=== PATIENT | female | born 1950 | race Hispanic/Latino ===

== ENCOUNTER 2017-02-21 20:02 | Emergency (ER) | payer OTHER ==
[2017-02-21 20:17] VITALS: PULSE 78; RESP 20; TEMP 96.2; O2SAT 100
[2017-02-21] MEDS ORDERED: TDAP Vaccine 0.5 mL Syr IM ONE (20:42)
--- NOTE | 2017-02-21 20:47 | ED PDOC ---
HPI: Skin/Bite Injury Time Seen by Provider: 02/21/17 20:15 Chief Complaint (Nursing): Abnormal Skin Integrity Chief Complaint (Provider): abnormal skin integrity History Per: Patient History/Exam Limitations: no limitations Onset/Duration Of Symptoms: Hrs (x 3) Current Symptoms Are (Timing): Still Present Additional Complaint(s): Tanya Buchanan is a 66 year old female, with a previous medical history of hypertension, who presents to the ED for the evaluation of scratches she sustained on her left hand approximately 3 hours prior to arrival. 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 Pt reports to trying to stop the bleeding of her patient's arm when her patient began to scratch her hand. Pt denies any blood contact from her patient. Pt states tetanus is not up to date. Pt denies any additional complaints at this time. PMD: Williams Bloom MD Past Medical History Reviewed: Historical Data, Nursing Documentation, Vital Signs Vital Signs: Last Vital Signs Temp 96.2 F L 02/21/17 20:14 Pulse 78 02/21/17 20:14 Resp 20 02/21/17 20:14 BP 151/92 H 02/21/17 20:14 Pulse Ox 100 02/21/17 20:14 - Medical History PMH: Anxiety, Diverticulitis, HTN - Family History Family History: States: Unknown Family Hx - Home Medications Home Medications: Ambulatory Orders Medication Instructions Recorded Cyclobenzaprine [Cyclobenzaprine 10 mg PO Q8 PRN #30 tab 07/07/16 HCl] Acetaminophen [Tylenol 325mg tab] 325 mg PO Q6 #30 tab 08/03/16 - Allergies Allergies/Adverse Reactions: Allergies Allergy/AdvReac Type Severity Reaction Status Date / Time No Known Allergies Allergy Verified 12/01/16 08:22 Review of Systems ROS Statement: Except As Marked, All Systems Reviewed And Found Negative Skin: Positive for: Other (scratches) Physical Exam - Reviewed Nursing Documentation Reviewed: Yes Vital Signs Reviewed: Yes - Physical Exam Appears: Positive for: Well, Non-toxic, No Acute Distress Head Exam: Positive for: ATRAUMATIC, NORMAL INSPECTION, NORMOCEPHALIC Skin: Positive for: Normal Color, Warm, Dry Extremity: Positive for: Normal ROM, Capillary Refill (< 2 seconds), Other ( abrasions noted to the left wrist. superficial. No active bleeding. ). Negative for: Tenderness, Deformity, Swelling - ECG O2 Sat by Pulse Oximetry: 100 (RA) Pulse Ox Interpretation: Normal Medical Decision Making Medical Decision Making: Initial Impression: Abrasion Initial Plan: * boostrix vaccine * disposition Scribe Attestation: Documented by Fay Marcus, acting as a scribe for Ana Rendon PA-C. Provider Scribe Attestation: All medical record entries made by the Scribe were at my direction and personally dictated by me. I have reviewed the chart and agree that the record accurately reflects my personal performance of the history, physical exam, medical decision making, and the department course for this patient. I have also personally directed, reviewed, and agree with the discharge instructions and disposition
[2017-02-21 21:55] VITALS: BP 150/79
== END 2017-02-21 21:33 | disposition home or self-care (01) ==
LOC: H.ER 20:02
DX: T14.8 Other injury of unspecified body region (principal); W50.4XXA Accidental scratch by another person, initial encounter; Y99.0 Civilian activity done for income or pay

== ENCOUNTER 2018-09-08 10:01 | Inpatient (IN) | payer MEDICARE ==
[2018-09-12 09:17] VITALS: BMI 31.6
[2018-09-13] MEDS ORDERED: Magnesium Hydroxide Susp 30 ml UD PO PRN (14:40)
[2018-09-13] MEDS ORDERED: oxyCODONE 5 mg Immediate Release Tab PO PRN ×2 (14:41→14:44)
[2018-09-14 06:24] LABS: BASO # 0.1 K/uL (0.0-0.2); BASO % 0.9 % (0.0-2.0); EOS # 0.4 K/uL (0.0-0.7); EOS % 3.9 % (0.0-4.0); LYMPH # 1.7 K/uL (1.0-4.3); LYMPH % 17.5 % (20.0-40.0); MEAN CELL VOLUME 92.4 fl (81.0-99.0); MEAN CORPUSCULAR HEMOGLOBIN 31.4 pg (27.0-31.0); MEAN PLATELET VOLUME 8.1 fl (7.2-11.7); MONO # 0.6 K/uL (0.0-0.8); MONO % 6.5 % (0.0-10.0); NEUT % 71.2 % (50.0-75.0); RBC 3.18 Mil/uL (3.80-5.20); RED CELL DISTRIBUTION WIDTH 12.7 % (11.5-14.5); WHITE BLOOD COUNT 9.9 K/uL (4.8-10.8)
[2018-09-14 06:30] LABS: BLOOD UREA NITROGEN 10 mg/dl (7-17); CALCIUM 9.1 mg/dL (8.4-10.2); GFR NON-AFRICAN AMERICAN > 60
[2018-09-14] MEDS: Enoxaparin 40 mg Syringe SC SCH (08:24)
--- NOTE | 2018-09-14 11:29 | CP.PCM.CON ---
History of Present Illness - History of Present Illness History of Present Illness: Dr Raines PMR consultation on Nori Buchanan, born 1950, who has been admitted to [facility] for acute inpatient rehabilitation and pain management following lumbar surgery by Dr Frias with L4/5 decompression and fusion Review of Systems - Constitutional Constitutional: absent: Anorexia, Chills - EENT Eyes: absent: Change in Vision Ears: absent: Ear Discharge, Ear Pain Nose/Mouth/Throat: absent: Nasal Congestion - Cardiovascular Cardiovascular: absent: Chest Pain - Respiratory Respiratory: absent: Dyspnea, Hemoptysis - Gastrointestinal Gastrointestinal: Constipation (which has resolved with medication) - Genitourinary Genitourinary: Other (urinary retention now with rodríguez) Past Patient History - Infectious Disease Hx of Infectious Diseases: None - Past Social History Smoking Status: Never Smoked Alcohol: None Drugs: Denies Home Situation {Lives}: Alone (15 steps) - CARDIAC Hx Hypertension: Yes - HEMATOLOGICAL/ONCOLOGICAL Hx AIDS: No Hx Human Immunodeficiency Virus (HIV): No - MUSCULOSKELETAL/RHEUMATOLOGICAL Hx Falls: No - GASTROINTESTINAL Hx Diverticulitis: Yes - PSYCHIATRIC Hx Substance Use: No - SURGICAL HISTORY Hx Surgeries: No - ANESTHESIA Hx Anesthesia: No Meds Allergies/Adverse Reactions: Allergies Allergy/AdvReac Type Severity Reaction Status Date / Time oxycodone [From OxyContin] AdvReac Intermediate VISUAL Verified 09/14/18 08:35 HALLUCINATION AND PARANOIA - Medications Medications: Current Medications Acetaminophen (Tylenol 325mg Tab) 650 mg PO Q6 PRN PRN Reason: Pain, Mild (1-3) Last Admin: 09/14/18 10:22 Dose: 650 mg Alprazolam (Xanax) 0.5 mg PO TID PRN PRN Reason: Anxiety Bisacodyl (Dulcolax) 10 mg [place] DAILY PRN PRN Reason: Constipation Cyclobenzaprine HCl (Flexeril) 10 mg PO BID [facility] Docusate Sodium (Colace) 100 mg PO TID [facility] Last Admin: 09/14/18 08:26 Dose: 100 mg Enoxaparin Sodium (Lovenox) 40 mg SC DAILY [facility]; Protocol Last Admin: 09/14/18 08:24 Dose: 40 mg Famotidine (Pepcid) 20 mg PO BID [facility] Last Admin: 09/14/18 08:25 Dose: 20 mg Gabapentin (Neurontin) 300 mg PO Q12 [facility] Last Admin: 09/14/18 08:25 Dose: 300 mg Lidocaine (Lidoderm) 1 ea TD DAILY PRN PRN Reason: Pain Losartan Potassium (Cozaar) 100 mg PO DAILY [facility] Last Admin: 09/14/18 08:25 Dose: 100 mg Magnesium Hydroxide (Milk Of Magnesia) 30 ml PO DAILY PRN PRN Reason: Constipation Ondansetron HCl (Zofran Tab) 4 mg PO Q6 PRN PRN Reason: Nausea/Vomiting Oxycodone HCl (Oxycodone Immediate Release Tab) 10 mg PO Q4 PRN PRN Reason: Pain, severe (8-10) Oxycodone HCl (Oxycodone Immediate Release Tab) 5 mg PO Q4 PRN PRN Reason: Pain, moderate (4-7) Sennosides (Senokot Tab) 17.5 mg PO HS [facility] Last Admin: 09/13/18 21:36 Dose: Not Given Physical Exam - Constitutional Appears: Well, Non-toxic, No Acute Distress - Head Exam Head Exam: ATRAUMATIC, NORMAL INSPECTION, NORMOCEPHALIC - Eye Exam Eye Exam: EOMI - ENT Exam ENT Exam: Mucous Membranes Moist - Respiratory Exam Respiratory Exam: NORMAL BREATHING PATTERN - Cardiovascular Exam Cardiovascular Exam: REGULAR RHYTHM - GI/Abdominal Exam GI & Abdominal Exam: absent: Firm - Extremities Exam Extremities exam: Positive for: full ROM. Negative for: calf tenderness - Neurological Exam Neurological exam: Alert, CN II-XII Intact, Oriented x3 - Psychiatric Exam Psychiatric exam: Normal Affect, Normal Mood - Skin Skin Exam: Warm Results - Vital Signs Recent Vital Signs: Last Vital Signs Temp 98.1 F 09/14/18 08:02 Pulse 76 09/14/18 08:02 Resp 22 09/14/18 08:02 BP 160/85 H 09/14/18 08:25 Pulse Ox 98 09/14/18 08:02 - Labs Result Diagrams: 09/14/18 05:25 09/14/18 05:25 Labs: Laboratory Results - last 24 hr 09/14/18 09/14/18 05:25 05:25 WBC 9.9 RBC 3.18 L Hgb 10.0 L Hct 29.4 L MCV 92.4 MCH 31.4 H MCHC 34.0 RDW 12.7 Plt Count 329 MPV 8.1 Neut % (Auto) 71.2 Lymph % (Auto) 17.5 L Newberry % (Auto) 6.5 Eos % (Auto) 3.9 Baso % (Auto) 0.9 Neut # (Auto) 7.0 Lymph # (Auto) 1.7 Newberry # (Auto) 0.6 Eos # (Auto) 0.4 Baso # (Auto) 0.1 Sodium 136 Potassium 3.5 L Chloride 99 Carbon Dioxide 30 Anion Gap 11 BUN 10 Creatinine 0.7 Est GFR ( Amer) > 60 Est GFR (Non-Af Amer) > 60 Random Glucose 106 H Calcium 9.1 Assessment & Plan - Assessment and Plan (Free Text) Assessment: 68 year old female s/p L4/5 fusion and decompression post op urinary retention has improved N/T in the legs but cramping in the thighs hurts on low dose of neurontin. I will increase. PT/OT to continue to help increase functional independence Team conference for d/c planning Pain: controlled but will increase Neurontin Vascular: no evidence of DVT GI: back and forth between constipation and loose stool. Patient is an excellent acute rehabilitation candidate and will have focused pain management, wound care, PT, OT and recreational therapy to help facilitate a safe and appropriate d/c plan impairment code 04.130
--- NOTE | 2018-09-14 18:30 | PCM.OPOC ---
Physiatry Overall Plan of Care - Overall Plan of Care Estimated Length of Stay in Weeks: 2 Rehab Impairment: Mobility, Gait, Balance, Coordination Etiologic Diagnosis: Other (spine surgery) - Anticipated Interventions Physical Therapy:: Yes Occupational Therapy:: Yes Speech Therapy:: No Recreational Therapy:: Yes - Therapy Goals Bed Mobility: Independent Ambulation: Independent Functional Positional Changes:: Independent - Discharge Plan Identification of Barriers to Discharge: Home Situation Discharge Destination: Home
--- NOTE | 2018-09-14 19:10 | HP ---
HISTORY OF PRESENT ILLNESS: Ms. Buchanan is a 68-year-old female who is status post lumbar laminectomy with decompression and fusion with instrumentation. She had the surgery because of spinal stenosis and severe back pains. She was operated at [facility] and then transferred to acute rehabilitation in [facility]. PAST MEDICAL HISTORY: Hypertension, diverticular disease, GERD, anxiety disorder, and thyroid nodule. FAMILY HISTORY: Noncontributory. 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 PHYSICAL EXAMINATION: GENERAL: The patient is alert and oriented, appears to be still in some distress because of low back pain following the surgery. VITAL SIGNS: Blood pressure 160/85, pulse of 76, respiratory rate 22. She is afebrile. O2 sat 98% on room air. SKIN: Shows fair turgor. HEENT: Pupils equal and reactive to light and accommodation. JVP flat. Mouth shows fair hygiene. LUNGS: Clear. BREASTS: Normal. HEART: Regular. No murmurs or gallop. ABDOMEN: Soft, nontender. No organomegaly. EXTREMITIES: Show trace pitting pedal edema. There is a scar of lumbar laminectomy over the lumbosacral spine area. The wound appears well-healed. GENITOURINARY: The patient still has a Back catheter in place because of urinary retention. CENTRAL NERVOUS SYSTEM: Appears grossly unremarkable. She is able to move all extremities. She is alert and oriented, but somewhat emotional. LABORATORY DATA: Pending. IMPRESSION AND PLAN: Status post lumbar laminectomy with fusion and L4-L5 decompression, hypertension, anxiety disorder, urinary retention, gastroesophageal reflux disease. The plan is aggressive occupational and physical therapy. Physiatry evaluation and we would obtain urology evaluation for urinary retention, history of thyroid nodule with negative 5 mL aspiration in the past. We will continue therapy as ordered. Further therapy will depend on findings. Nahid Simpson MD
--- NOTE | 2018-09-14 20:29 | CP.PCM.PN ---
Subjective - Date & Time of Evaluation Date of Evaluation: 09/14/18 Time of Evaluation: 20:28 - Subjective Subjective: UROLOGY Consult dictated. x post op urine retention. Suggest Uricholione tid then on 09/16 D/C rodríguez and give voiding trial Objective - Vital Signs/Intake and Output Vital Signs (last 24 hours): Temp Pulse Resp BP Pulse Ox 98.2 F 83 20 157/79 H 98 09/14/18 20:15 09/14/18 20:15 09/14/18 20:15 09/14/18 20:15 09/14/18 20:15 Intake and Output: 09/14/18 09/15/18 18:59 06:59 Intake Total 980 Output Total 1100 Balance -120 - Medications Medications: Current Medications Acetaminophen (Tylenol 325mg Tab) 650 mg PO Q6 PRN PRN Reason: Pain, Mild (1-3) Last Admin: 09/14/18 18:01 Dose: 650 mg Alprazolam (Xanax) 0.5 mg PO TID PRN PRN Reason: Anxiety Last Admin: 09/14/18 13:48 Dose: 0.5 mg Bisacodyl (Dulcolax) 10 mg [place] DAILY PRN PRN Reason: Constipation Cyclobenzaprine HCl (Flexeril) 10 mg PO BID [facility] Last Admin: 09/14/18 17:06 Dose: 10 mg Docusate Sodium (Colace) 100 mg PO TID [facility] Last Admin: 09/14/18 17:06 Dose: 100 mg Enoxaparin Sodium (Lovenox) 40 mg SC DAILY [facility]; Protocol Last Admin: 09/14/18 08:24 Dose: 40 mg Famotidine (Pepcid) 20 mg PO BID [facility] Last Admin: 09/14/18 17:06 Dose: 20 mg Gabapentin (Neurontin) 400 mg PO TID [facility] Lidocaine (Lidoderm) 1 ea TD DAILY PRN PRN Reason: Pain Losartan Potassium (Cozaar) 100 mg PO DAILY [facility] Last Admin: 09/14/18 08:25 Dose: 100 mg Magnesium Hydroxide (Milk Of Magnesia) 30 ml PO DAILY PRN PRN Reason: Constipation Ondansetron HCl (Zofran Tab) 4 mg PO Q6 PRN PRN Reason: Nausea/Vomiting Oxycodone HCl (Oxycodone Immediate Release Tab) 10 mg PO Q4 PRN PRN Reason: Pain, severe (8-10) Oxycodone HCl (Oxycodone Immediate Release Tab) 5 mg PO Q4 PRN PRN Reason: Pain, moderate (4-7) Sennosides (Senokot Tab) 17.5 mg PO HS [facility] Last Admin: 09/13/18 21:36 Dose: Not Given - Labs Labs: 09/14/18 05:25 09/14/18 05:25
[2018-09-14] MEDS: Bethanechol 50 MG TAB PO SCH (21:37)
--- NOTE | 2018-09-15 05:53 | CON ---
DATE: 09/14/2018 Consult was seen for urinary retention. This is a 68-year-old female patient who had been suffering of lumbar stenosis for quite some time, got to the point where she was almost unable to ambulate. At this point, she had gone for elective surinder placement for the lower back and postoperatively from where the patient did not have any urinary difficulty behind this procedure. Following the procedure, the patient had several episodes of significant urinary retention with greater than 1000 mL recovered on straight cath. Catheter has now been placed in as an indwelling Back catheter. At the same time, the urine problem was becoming evident. The patient also had severe bowel impaction, and she was manually disimpacted. As at the time of this consult, the patient is still having difficulty with normal bowel movement. She is on multiple forms of bowel softeners. So, at this point, I would probably begin bethanechol 50 mg every 8 hours in preparation for an eventual voiding trial which I suspect would happen on Friday of this week 8 o'clock in the morning. We will remove Back catheter and see if the patient is able to void. Currently, the patient is ambulatory. She is not running any fever. She is not having any unusual discomfort from the Back catheter. Shaun Saleh MD
[2018-09-15] MEDS: Enoxaparin 40 mg Syringe SC SCH (08:09)
[2018-09-15] MEDS: Bethanechol 50 MG TAB PO SCH ×3 (08:10→21:03)
--- NOTE | 2018-09-15 09:09 | CP.PCM.PN ---
Subjective - Date & Time of Evaluation Date of Evaluation: 09/15/18 Time of Evaluation: 09:10 - Subjective Subjective: NO COMPLAINTS TODAY ANXIOUS Objective - Vital Signs/Intake and Output Vital Signs (last 24 hours): Temp Pulse Resp BP Pulse Ox 98.1 F 84 22 152/74 H 97 09/15/18 08:13 09/15/18 08:13 09/15/18 08:13 09/15/18 08:13 09/15/18 08:13 Intake and Output: 09/15/18 09/15/18 06:59 18:59 Intake Total 1400 Output Total 2150 Balance -750 - Medications Medications: Current Medications Acetaminophen (Tylenol 325mg Tab) 650 mg PO Q6 PRN PRN Reason: Pain, Mild (1-3) Last Admin: 09/14/18 18:01 Dose: 650 mg Alprazolam (Xanax) 0.5 mg PO TID PRN PRN Reason: Anxiety Last Admin: 09/15/18 07:38 Dose: 0.5 mg Bethanechol Chloride (Urecholine) 50 mg PO TID@0900,1500,2100 [facility] Last Admin: 09/15/18 08:10 Dose: 50 mg Bisacodyl (Dulcolax) 10 mg [place] DAILY PRN PRN Reason: Constipation Cyclobenzaprine HCl (Flexeril) 10 mg PO BID [facility] Last Admin: 09/15/18 08:09 Dose: 10 mg Docusate Sodium (Colace) 100 mg PO TID [facility] Last Admin: 09/15/18 08:13 Dose: 100 mg Enoxaparin Sodium (Lovenox) 40 mg SC DAILY [facility]; Protocol Last Admin: 09/15/18 08:09 Dose: 40 mg Famotidine (Pepcid) 20 mg PO BID [facility] Last Admin: 09/15/18 08:10 Dose: 20 mg Gabapentin (Neurontin) 400 mg PO TID@0900,1500,2100 [facility] Last Admin: 09/15/18 08:10 Dose: 400 mg Lidocaine (Lidoderm) 1 ea TD DAILY PRN PRN Reason: Pain Losartan Potassium (Cozaar) 100 mg PO DAILY [facility] Last Admin: 09/15/18 08:09 Dose: 100 mg Magnesium Hydroxide (Milk Of Magnesia) 30 ml PO DAILY PRN PRN Reason: Constipation Ondansetron HCl (Zofran Tab) 4 mg PO Q6 PRN PRN Reason: Nausea/Vomiting Oxycodone HCl (Oxycodone Immediate Release Tab) 10 mg PO Q4 PRN PRN Reason: Pain, severe (8-10) Oxycodone HCl (Oxycodone Immediate Release Tab) 5 mg PO Q4 PRN PRN Reason: Pain, moderate (4-7) Sennosides (Senokot Tab) 17.5 mg PO HS [facility] Last Admin: 09/14/18 21:39 Dose: Not Given - Labs Labs: 09/14/18 05:25 09/14/18 05:25 - Constitutional Appears: No Acute Distress - Head Exam Head Exam: ATRAUMATIC, NORMAL INSPECTION, NORMOCEPHALIC - Eye Exam Eye Exam: EOMI, Normal appearance, PERRL Pupil Exam: NORMAL ACCOMODATION, PERRL - ENT Exam ENT Exam: Mucous Membranes Moist, Normal Exam - Neck Exam Neck Exam: Full ROM, Normal Inspection. absent: Lymphadenopathy - Respiratory Exam Respiratory Exam: Clear to Ausculation Bilateral, NORMAL BREATHING PATTERN - Cardiovascular Exam Cardiovascular Exam: REGULAR RHYTHM, +S1, +S2. absent: Murmur - GI/Abdominal Exam GI & Abdominal Exam: Soft, Normal Bowel Sounds. absent: Tenderness - Rectal Exam Rectal Exam: NORMAL INSPECTION - Extremities Exam Extremities Exam: Full ROM, Normal Capillary Refill, Normal Inspection, Tenderness. absent: Joint Swelling, Pedal Edema - Back Exam Back Exam: NORMAL INSPECTION - Neurological Exam Neurological Exam: Abnormal Gait, Alert, Awake, CN II-XII Intact, Oriented x3 - Psychiatric Exam Psychiatric exam: Anxious - Skin Skin Exam: Dry, Intact, Normal Color, Warm Assessment and Plan - Assessment and Plan (Free Text) Assessment: S/P LAMINECTOMY AND SPINAL FUSION ANXIETY URINARY RETENTION Plan: CONTINUE RX ORDERED
--- NOTE | 2018-09-15 13:16 | PSY.TMCNF ---
Nursing - Vital Signs Vital Signs (Last 8 hours): Vital Signs 09/15/18 09/15/18 09/15/18 08:09 08:13 09:00 Temperature 98.1 F 98.1 F Pulse Rate 84 84 Respiratory 22 22 Rate Blood Pressure 152/74 H 152/74 H 152/74 H O2 Sat by Pulse 97 Oximetry Pain: 0 - Skin Incision Site: Mid lower back Dressing Status: Clean, Dry, Intact Incision: No Drainage Noted Incision Line Treatment: I/L with dermabond - [place] - Wound Lower Back Wound Type: Incision Periwound: Intact Wound Drainage Amount: None Wound General Appearance: Asymptomatic, Open to air Wound Primary Dressing Type: Open to air - Bladder Management Bladder Pattern: Retention Voiding Method: Indwelling Catheter - Bowel Management Bowel Pattern: Normal - Goals/Time Frame Comments: Pt was seen awake and alert sitting in her wheelchair in her room. Pt was agreeable to visit. Pt c/o pain in quadricep area and presented with no back pain. Pt was able to identify her leisure interests such as watching television, gardening, going shopping, spending time with friends, and plays music. Pt reported that she plays the piano, guitar, and the violin. Pt stated that her back pain has limited her lifestyle and pt stated that she will watch television more and lay in bed 2' pain and discomfort. Pt agreeable to participate in sessions and educated on purpose to decrease anxiety level. Pt's mood was stable-positive although worried about therapy session. Pt seen by PT following visit. Physical Therapy - Transfers Sit to Stand: Supervision, Verbal Cues - Ambulation Level of Assistance: Supervision, Verbal Cues, Contact Guard, Minimal Assistance Distance (ft.): 140 Assistive Devices: Rolling Walker - Stair Negotiation Stairs: Level of Assistance: Verbal Cues, Contact Guard Number of Stairs: 4 Stairs: Assistive Devices: Left Handrail, Right Handrail - Standing Balance Static Stand: Supervision Dynamic Stand: Supervision, Contact Guard Assist - Pain Management Techniques: Medication, Position Change, Distraction, Inactivity - Assessment/Plan Assessment: Ms. Buchanan is a 68 year old female admitted to [facility] acute rehabilitation on 09/13/18 for comprehensive therapies s/p lumbar laminectomy. Patient requires low complexity problem solving and condition is stable. Patient has some discomfort in the BLE but over-all reports that her distal numbness and tingling from B feet has improved. Pt educated on goal of centralization of symptoms from prior to surgery. Patient is compliant and agreeable to participate in all tasks. Pt presents with impaired sensation, some LE impaired neuromotor control, impaired mobility and decreased tolerance to exercise s/p procedure. PT recommends skilled therapy 5-6x per week for 9-14 days to maximize safety and independence with all tasks. PT recommends home discharge with intermittent supervision, assistance in community and least restrictive AD to be determined. PT recommends home care progressing to outpatient as appropriate. - Provider Therapist: Becky Schmidt PT, DPT License Number: [id number] Occupational Therapy - Arousal/Attention/Orientation Patient Orientation: Person, Place, Time, Appropriate to Age, Appropriate to Situation - ADL/IADL Self Feeding: Independent, Modified Independent, Set-up Help Grooming: Supervision, Set-up Help Bathing-Upper Extremity: Supervision, Verbal Cues, Set-up Help Bathing-Lower Extremity: Verbal Cues, Set-up Help, Minimal Assistance Dressing-Upper Extremity: Set-up Help Dressing-Lower Extremity: Verbal Cues, Set-up Help, Minimal Assistance - Sitting Balance Static Sitting: Independent without upper extremity support Dynamic Sitting: Reaches out of base of support, Reaches within base of support, Requires supervision Comment: seated unsupported - Transfers Wheelchair to Bed Transfers: Supervision, Verbal Cues, Set-up Help Toilet Transfers: Set-up Help, Contact Guard Comment: with RW, verbal cues to pace and adhere to spinal precautions - Upper Extremity Status Right Upper Extremity Comment: AROM is WNLS, strength 5/5 Left Upper Extremity Comment: AROM is WNLS, strength 5/5 - Pain Alleviating Techniques: Medication, Position Change, Distraction, Inactivity - Assessment/Plan Assessment: Ms. Buchanan is a 68 year old female admitted to [facility] acute rehabilitation on 09/13/18 for comprehensive therapies s/p lumbar laminectomy. Patient requires low complexity problem solving and condition is stable. Patient has some discomfort in the BLE but over-all reports that her distal numbness and tingling from B feet has improved. Pt educated on goal of centralization of symptoms from prior to surgery. Patient is compliant and agreeable to participate in all tasks. Pt presents with impaired sensation, some LE impaired neuromotor control, impaired mobility and decreased tolerance to exercise s/p procedure. PT recommends skilled therapy 5-6x per week for 9-14 days to maximize safety and independence with all tasks. PT recommends home discharge with intermittent supervision, assistance in community and least restrictive AD to be determined. PT recommends home care progressing to outpatient as appropriate. - Provider Therapist: Hannah Chakraborty, OTR/L Speech Therapy - Plan Assessment: Ms. Buchanan is a 68 year old female admitted to [facility] acute rehabilitation on 09/13/18 for comprehensive therapies s/p lumbar laminectomy. Patient requires low complexity problem solving and condition is stable. Patient has some discomfort in the BLE but over-all reports that her distal numbness and tingling from B feet has improved. Pt educated on goal of centralization of symptoms from prior to surgery. Patient is compliant and agreeable to participate in all tasks. Pt presents with impaired sensation, some LE impaired neuromotor control, impaired mobility and decreased tolerance to exercise s/p procedure. PT recommends skilled therapy 5-6x per week for 9-14 days to maximize safety and independence with all tasks. PT recommends home discharge with intermittent supervision, assistance in community and least restrictive AD to be determined. PT recommends home care progressing to outpatient as appropriate. Recreational Therapy - Socialization Level of Socialization: Initiates/interacts freely with care givers and peer - Assessment Assessment/Plan: Ms. Buchanan is a 68 year old female admitted to [facility] acute rehabilitation on 09/13/18 for comprehensive therapies s/p lumbar laminectomy. Patient requires low complexity problem solving and condition is stable. Patient has some discomfort in the BLE but over-all reports that her distal numbness and tingling from B feet has improved. Pt educated on goal of centralization of symptoms from prior to surgery. Patient is compliant and agreeable to participate in all tasks. Pt presents with impaired sensation, some LE impaired neuromotor control, impaired mobility and decreased tolerance to exercise s/p procedure. PT recommends skilled therapy 5-6x per week for 9-14 days to maximize safety and independence with all tasks. PT recommends home discharge with intermittent supervision, assistance in community and least restrictive AD to be determined. PT recommends home care progressing to outpatient as appropriate. Problems Currently Limiting Participation: anxiety, pain, discomfort, decrease leisure awareness level - Provider Therapist: Karolyn Chávez, [employer] #[id number] Nutrition - Current Diet Current Diet/ Supplement/ Feedings: 2 gm NA+ - Appetite Percent Meal Consumed: 75-100% Case Management - Discharge Plan Discharge Plan: Home alone Rehabilitation Plan - Treatment Plan Treatment Plan: Physical Therapy, Occupational Therapy, Dietary, Pain Management, Wound Care, Patient/Family Education - Discharge Plan Estimated Date of Discharge: 09/25/18 Discharge to: Home
--- NOTE | 2018-09-15 13:42 | CP.PCM.PN ---
Subjective - Date & Time of Evaluation Date of Evaluation: 09/15/18 Time of Evaluation: 13:41 - Subjective Subjective: Patient seen in the room doing well rodríguez to be removed tomorrow pain is controlled except for the thigh pain just started higher dose neurontin continue current care Objective - Vital Signs/Intake and Output Vital Signs (last 24 hours): Temp Pulse Resp BP Pulse Ox 98.1 F 84 22 152/74 H 97 09/15/18 09:00 09/15/18 09:00 09/15/18 09:00 09/15/18 09:00 09/15/18 08:13 Intake and Output: 09/15/18 09/15/18 06:59 18:59 Intake Total 1400 Output Total 2150 Balance -750 - Medications Medications: Current Medications Acetaminophen (Tylenol 325mg Tab) 650 mg PO Q6 PRN PRN Reason: Pain, Mild (1-3) Last Admin: 09/14/18 18:01 Dose: 650 mg Alprazolam (Xanax) 0.5 mg PO TID PRN PRN Reason: Anxiety Last Admin: 09/15/18 07:38 Dose: 0.5 mg Bethanechol Chloride (Urecholine) 50 mg PO Q8 [facility] Bisacodyl (Dulcolax) 10 mg IA DAILY PRN PRN Reason: Constipation Cyclobenzaprine HCl (Flexeril) 10 mg PO BID [facility] Last Admin: 09/15/18 08:09 Dose: 10 mg Docusate Sodium (Colace) 100 mg PO TID [facility] Last Admin: 09/15/18 08:13 Dose: 100 mg Enoxaparin Sodium (Lovenox) 40 mg SC DAILY [facility]; Protocol Last Admin: 09/15/18 08:09 Dose: 40 mg Famotidine (Pepcid) 20 mg PO BID [facility] Last Admin: 09/15/18 08:10 Dose: 20 mg Gabapentin (Neurontin) 400 mg PO Q8 [facility] Lidocaine (Lidoderm) 1 ea TD DAILY PRN PRN Reason: Pain Losartan Potassium (Cozaar) 100 mg PO DAILY [facility] Last Admin: 09/15/18 08:09 Dose: 100 mg Magnesium Hydroxide (Milk Of Magnesia) 30 ml PO DAILY PRN PRN Reason: Constipation Ondansetron HCl (Zofran Tab) 4 mg PO Q6 PRN PRN Reason: Nausea/Vomiting Oxycodone HCl (Oxycodone Immediate Release Tab) 10 mg PO Q4 PRN PRN Reason: Pain, severe (8-10) Oxycodone HCl (Oxycodone Immediate Release Tab) 5 mg PO Q4 PRN PRN Reason: Pain, moderate (4-7) Sennosides (Senokot Tab) 17.5 mg PO HS [facility] Last Admin: 09/14/18 21:39 Dose: Not Given - Labs Labs: 09/14/18 05:25 09/14/18 05:25
[2018-09-16] MEDS: Bethanechol 50 MG TAB PO SCH ×4 (06:55→21:31)
[2018-09-16] MEDS: Enoxaparin 40 mg Syringe SC SCH (08:31)
--- NOTE | 2018-09-16 10:53 | CP.PCM.PN ---
Subjective - Date & Time of Evaluation Date of Evaluation: 09/16/18 Time of Evaluation: 10:53 - Subjective Subjective: FEELS BETTER GHOTRA REMOVED--PT VOIDED C/O DISCOMFORT IN GREAT TOE AND WANTS BETADINE SOLUTION APPLIED TO IT Objective - Vital Signs/Intake and Output Vital Signs (last 24 hours): Temp Pulse Resp BP Pulse Ox 98.1 F 77 22 145/80 98 09/16/18 08:23 09/16/18 08:23 09/16/18 08:23 09/16/18 08:32 09/16/18 08:23 Intake and Output: 09/16/18 09/16/18 06:59 18:59 Intake Total 480 Output Total 2950 Balance -2470 - Medications Medications: Current Medications Acetaminophen (Tylenol 325mg Tab) 650 mg PO Q6 PRN PRN Reason: Pain, Mild (1-3) Last Admin: 09/16/18 00:58 Dose: 650 mg Alprazolam (Xanax) 0.5 mg PO TID PRN PRN Reason: Anxiety Last Admin: 09/16/18 07:49 Dose: 0.5 mg Bethanechol Chloride (Urecholine) 50 mg PO Q8 [facility] Last Admin: 09/16/18 07:04 Dose: 50 mg Bisacodyl (Dulcolax) 10 mg NE DAILY PRN PRN Reason: Constipation Cyclobenzaprine HCl (Flexeril) 10 mg PO BID [facility] Last Admin: 09/16/18 08:31 Dose: 10 mg Docusate Sodium (Colace) 100 mg PO TID [facility] Last Admin: 09/16/18 08:33 Dose: Not Given Enoxaparin Sodium (Lovenox) 40 mg SC DAILY [facility]; Protocol Last Admin: 09/16/18 08:31 Dose: 40 mg Famotidine (Pepcid) 20 mg PO BID [facility] Last Admin: 09/16/18 08:32 Dose: 20 mg Gabapentin (Neurontin) 400 mg PO Q8 [facility] Last Admin: 09/16/18 06:45 Dose: 400 mg Hydrochlorothiazide (Hydrodiuril) 25 mg PO DAILY [facility] Last Admin: 09/16/18 08:31 Dose: 25 mg Lidocaine (Lidoderm) 1 ea TD DAILY PRN PRN Reason: Pain Losartan Potassium (Cozaar) 100 mg PO DAILY [facility] Last Admin: 09/16/18 08:32 Dose: 100 mg Magnesium Hydroxide (Milk Of Magnesia) 30 ml PO DAILY PRN PRN Reason: Constipation Ondansetron HCl (Zofran Tab) 4 mg PO Q6 PRN PRN Reason: Nausea/Vomiting Oxycodone HCl (Oxycodone Immediate Release Tab) 10 mg PO Q4 PRN PRN Reason: Pain, severe (8-10) Oxycodone HCl (Oxycodone Immediate Release Tab) 5 mg PO Q4 PRN PRN Reason: Pain, moderate (4-7) Sennosides (Senokot Tab) 17.5 mg PO HS [facility] Last Admin: 09/15/18 21:03 Dose: Not Given - Labs Labs: 09/14/18 05:25 09/14/18 05:25 - Constitutional Appears: No Acute Distress - Head Exam Head Exam: ATRAUMATIC, NORMAL INSPECTION, NORMOCEPHALIC - Eye Exam Eye Exam: EOMI, Normal appearance, PERRL Pupil Exam: NORMAL ACCOMODATION, PERRL - ENT Exam ENT Exam: Mucous Membranes Moist, Normal Exam - Neck Exam Neck Exam: Full ROM, Normal Inspection. absent: Lymphadenopathy - Respiratory Exam Respiratory Exam: Clear to Ausculation Bilateral, NORMAL BREATHING PATTERN - Cardiovascular Exam Cardiovascular Exam: REGULAR RHYTHM, +S1, +S2. absent: Murmur - GI/Abdominal Exam GI & Abdominal Exam: Soft, Normal Bowel Sounds. absent: Tenderness - Rectal Exam Rectal Exam: NORMAL INSPECTION - Extremities Exam Extremities Exam: Full ROM, Normal Capillary Refill, Normal Inspection. absent: Joint Swelling, Pedal Edema - Back Exam Back Exam: NORMAL INSPECTION - Neurological Exam Neurological Exam: Abnormal Gait, Alert, Awake, CN II-XII Intact, Oriented x3 - Psychiatric Exam Psychiatric exam: Normal Affect, Normal Mood - Skin Skin Exam: Dry, Intact, Normal Color, Warm Assessment and Plan - Assessment and Plan (Free Text) Assessment: S/P SPINE SURGERY URINARY RETENTION--IMPROVED Plan: CONTINUE CURRENT RX
--- NOTE | 2018-09-16 12:55 | CP.PCM.PN ---
Subjective - Date & Time of Evaluation Date of Evaluation: 09/16/18 Time of Evaluation: 09:30 - Subjective Subjective: no acute complaints at present Objective - Vital Signs/Intake and Output Vital Signs (last 24 hours): Temp Pulse Resp BP Pulse Ox 98.1 F 77 22 145/80 98 09/16/18 08:23 09/16/18 08:23 09/16/18 08:23 09/16/18 08:32 09/16/18 08:23 Intake and Output: 09/16/18 09/16/18 06:59 18:59 Intake Total 480 Output Total 2950 Balance -2470 - Medications Medications: Current Medications Acetaminophen (Tylenol 325mg Tab) 650 mg PO Q6 PRN PRN Reason: Pain, Mild (1-3) Last Admin: 09/16/18 00:58 Dose: 650 mg Alprazolam (Xanax) 0.5 mg PO TID PRN PRN Reason: Anxiety Last Admin: 09/16/18 07:49 Dose: 0.5 mg Bethanechol Chloride (Urecholine) 50 mg PO Q8 [facility] Last Admin: 09/16/18 07:04 Dose: 50 mg Bisacodyl (Dulcolax) 10 mg ID DAILY PRN PRN Reason: Constipation Cyclobenzaprine HCl (Flexeril) 10 mg PO BID [facility] Last Admin: 09/16/18 08:31 Dose: 10 mg Docusate Sodium (Colace) 100 mg PO TID [facility] Last Admin: 09/16/18 08:33 Dose: Not Given Enoxaparin Sodium (Lovenox) 40 mg SC DAILY [facility]; Protocol Last Admin: 09/16/18 08:31 Dose: 40 mg Famotidine (Pepcid) 20 mg PO BID [facility] Last Admin: 09/16/18 08:32 Dose: 20 mg Gabapentin (Neurontin) 400 mg PO Q8 [facility] Last Admin: 09/16/18 06:45 Dose: 400 mg Hydrochlorothiazide (Hydrodiuril) 25 mg PO DAILY [facility] Last Admin: 09/16/18 08:31 Dose: 25 mg Lidocaine (Lidoderm) 1 ea TD DAILY PRN PRN Reason: Pain Losartan Potassium (Cozaar) 100 mg PO DAILY [facility] Last Admin: 09/16/18 08:32 Dose: 100 mg Magnesium Hydroxide (Milk Of Magnesia) 30 ml PO DAILY PRN PRN Reason: Constipation Ondansetron HCl (Zofran Tab) 4 mg PO Q6 PRN PRN Reason: Nausea/Vomiting Povidone Iodine (Betadine 10% Topical Soln) 1 ml TOP BID [facility] Sennosides (Senokot Tab) 17.2 mg PO HS [facility] - Labs Labs: 09/14/18 05:25 09/14/18 05:25 - Head Exam Head Exam: ATRAUMATIC, NORMAL INSPECTION, NORMOCEPHALIC - Eye Exam Eye Exam: EOMI, Normal appearance, PERRL Pupil Exam: NORMAL ACCOMODATION - Neck Exam Neck Exam: Full ROM, Normal Inspection - Respiratory Exam Respiratory Exam: Clear to Ausculation Bilateral, NORMAL BREATHING PATTERN - Cardiovascular Exam Cardiovascular Exam: REGULAR RHYTHM - GI/Abdominal Exam GI & Abdominal Exam: Normal Bowel Sounds - Rectal Exam Rectal Exam: NORMAL INSPECTION - Exam External exam: NORMAL EXTERNAL EXAM - Extremities Exam Extremities Exam: Full ROM, Normal Capillary Refill - Back Exam Back Exam: NORMAL INSPECTION - Neurological Exam Neurological Exam: Alert, Awake - Psychiatric Exam Psychiatric exam: Normal Affect, Normal Mood - Skin Skin Exam: Dry, Intact Assessment and Plan (1) Knee injury Status: Acute (2) Nasal contusion Status: Acute (3) Tetanus toxoid vaccination administered at current visit Status: Acute - Assessment and Plan (Free Text) Assessment: lumbar stenosis pt, ot rec therapy covering for Dr haider
[2018-09-16] MEDS: Povidone Iodine Topical 10% Sol TOP SCH (21:30)
[2018-09-17] MEDS: Bethanechol 50 MG TAB PO SCH (06:32)
[2018-09-17 06:35] LABS: HEMOGLOBIN 11.6 g/dL (12.0-16.0); MEAN CELL VOLUME 91.3 fl (81.0-99.0); MEAN CORPUSCULAR HEMOGLOBIN 31.8 pg (27.0-31.0); MEAN CORPUSCULAR HGB CONC 34.8 g/dL (33.0-37.0); RBC 3.65 Mil/uL (3.80-5.20); RED CELL DISTRIBUTION WIDTH 12.8 % (11.5-14.5); WHITE BLOOD COUNT 10.3 K/uL (4.8-10.8)
[2018-09-17 06:39] LABS: CALCIUM 9.5 mg/dL (8.4-10.2); GFR NON-AFRICAN AMERICAN > 60; HDL CHOLESTEROL 42 MG/DL (30-70)
[2018-09-17 06:49] LABS: LDL CHOLESTEROL 141 mg/dL (0-129)
[2018-09-17 06:54] LABS: BLOOD UREA NITROGEN 11 mg/dl (7-17)
[2018-09-17] MEDS: Povidone Iodine Topical 10% Sol TOP SCH ×2 (09:00→17:42)
[2018-09-17] MEDS: Enoxaparin 40 mg Syringe SC SCH (09:01)
--- NOTE | 2018-09-17 11:00 | CP.PCM.PN ---
Subjective - Date & Time of Evaluation Date of Evaluation: 09/17/18 Time of Evaluation: 11:00 - Subjective Subjective: CLINICALLY IMPROVING BACK PAIN LESS PT PROGRESSING WELL Objective - Vital Signs/Intake and Output Vital Signs (last 24 hours): Temp Pulse Resp BP Pulse Ox 98.2 F 81 20 152/79 H 96 09/17/18 08:37 09/17/18 09:01 09/17/18 08:37 09/17/18 09:01 09/17/18 08:37 Intake and Output: 09/17/18 09/17/18 06:59 18:59 Intake Total 800 Balance 800 - Medications Medications: Current Medications Acetaminophen (Tylenol 325mg Tab) 650 mg PO Q6 PRN PRN Reason: Pain, Mild (1-3) Last Admin: 09/17/18 07:03 Dose: 650 mg Alprazolam (Xanax) 0.5 mg PO TID PRN PRN Reason: Anxiety Last Admin: 09/17/18 07:03 Dose: 0.5 mg Bisacodyl (Dulcolax) 10 mg IN DAILY PRN PRN Reason: Constipation Cyclobenzaprine HCl (Flexeril) 10 mg PO BID [facility] Last Admin: 09/17/18 09:02 Dose: 10 mg Docusate Sodium (Colace) 100 mg PO TID [facility] Last Admin: 09/17/18 08:59 Dose: Not Given Enoxaparin Sodium (Lovenox) 40 mg SC DAILY [facility]; Protocol Last Admin: 09/17/18 09:01 Dose: 40 mg Famotidine (Pepcid) 20 mg PO BID [facility] Last Admin: 09/17/18 09:02 Dose: 20 mg Gabapentin (Neurontin) 400 mg PO Q8 [facility] Last Admin: 09/17/18 06:32 Dose: 400 mg Hydrochlorothiazide (Hydrodiuril) 25 mg PO DAILY [facility] Last Admin: 09/17/18 09:02 Dose: 25 mg Lidocaine (Lidoderm) 1 ea TD DAILY PRN PRN Reason: Pain Losartan Potassium (Cozaar) 100 mg PO DAILY [facility] Last Admin: 09/17/18 09:01 Dose: 100 mg Magnesium Hydroxide (Milk Of Magnesia) 30 ml PO DAILY PRN PRN Reason: Constipation Ondansetron HCl (Zofran Tab) 4 mg PO Q6 PRN PRN Reason: Nausea/Vomiting Povidone Iodine (Betadine 10% Topical Soln) 1 ml TOP BID [facility] Last Admin: 09/17/18 09:00 Dose: 1 ml Sennosides (Senokot Tab) 17.2 mg PO HS [facility] Last Admin: 09/16/18 21:31 Dose: Not Given - Labs Labs: 09/17/18 05:20 09/17/18 05:20 - Constitutional Appears: No Acute Distress - Head Exam Head Exam: ATRAUMATIC, NORMAL INSPECTION, NORMOCEPHALIC - Eye Exam Eye Exam: EOMI, Normal appearance, PERRL Pupil Exam: NORMAL ACCOMODATION, PERRL - ENT Exam ENT Exam: Mucous Membranes Moist, Normal Exam - Neck Exam Neck Exam: Full ROM, Normal Inspection. absent: Lymphadenopathy - Respiratory Exam Respiratory Exam: Clear to Ausculation Bilateral, NORMAL BREATHING PATTERN - Cardiovascular Exam Cardiovascular Exam: REGULAR RHYTHM, +S1, +S2. absent: Murmur - GI/Abdominal Exam GI & Abdominal Exam: Soft, Normal Bowel Sounds. absent: Tenderness - Rectal Exam Rectal Exam: NORMAL INSPECTION - Extremities Exam Extremities Exam: Full ROM, Normal Capillary Refill, Normal Inspection. absent: Joint Swelling, Pedal Edema - Back Exam Back Exam: NORMAL INSPECTION - Neurological Exam Neurological Exam: Alert, Awake, CN II-XII Intact, Normal Gait, Oriented x3 - Psychiatric Exam Psychiatric exam: Normal Affect, Normal Mood - Skin Skin Exam: Dry, Intact, Normal Color, Warm Assessment and Plan - Assessment and Plan (Free Text) Assessment: S/P SPINE SURGERY WITH FUSION HTN-STABLE ANEMIA-IMPROVED HYPERLIPIDEMIA ANXIETY Plan: CONTINUE CURRENT THERAPY
--- NOTE | 2018-09-17 20:25 | CP.PCM.PN ---
Subjective - Date & Time of Evaluation Date of Evaluation: 09/17/18 Time of Evaluation: 11:00 - Subjective Subjective: no acute complaints of pain Objective - Vital Signs/Intake and Output Vital Signs (last 24 hours): Temp Pulse Resp BP Pulse Ox 98.2 F 81 20 152/79 H 96 09/17/18 08:37 09/17/18 09:01 09/17/18 08:37 09/17/18 09:01 09/17/18 08:37 - Medications Medications: Current Medications Acetaminophen (Tylenol 325mg Tab) 650 mg PO Q6 PRN PRN Reason: Pain, Mild (1-3) Last Admin: 09/17/18 07:03 Dose: 650 mg Alprazolam (Xanax) 0.5 mg PO TID PRN PRN Reason: Anxiety Last Admin: 09/17/18 20:14 Dose: 0.5 mg Bisacodyl (Dulcolax) 10 mg NC DAILY PRN PRN Reason: Constipation Cyclobenzaprine HCl (Flexeril) 10 mg PO BID [facility] Last Admin: 09/17/18 17:43 Dose: 10 mg Docusate Sodium (Colace) 100 mg PO TID [facility] Last Admin: 09/17/18 17:43 Dose: 100 mg Enoxaparin Sodium (Lovenox) 40 mg SC DAILY [facility]; Protocol Last Admin: 09/17/18 09:01 Dose: 40 mg Famotidine (Pepcid) 20 mg PO BID [facility] Last Admin: 09/17/18 17:44 Dose: 20 mg Gabapentin (Neurontin) 400 mg PO Q8 [facility] Last Admin: 09/17/18 13:06 Dose: 400 mg Hydrochlorothiazide (Hydrodiuril) 25 mg PO DAILY [facility] Last Admin: 09/17/18 09:02 Dose: 25 mg Lidocaine (Lidoderm) 1 ea TD DAILY PRN PRN Reason: Pain Losartan Potassium (Cozaar) 100 mg PO DAILY [facility] Last Admin: 09/17/18 09:01 Dose: 100 mg Magnesium Hydroxide (Milk Of Magnesia) 30 ml PO DAILY PRN PRN Reason: Constipation Ondansetron HCl (Zofran Tab) 4 mg PO Q6 PRN PRN Reason: Nausea/Vomiting Povidone Iodine (Betadine 10% Topical Soln) 1 ml TOP BID [facility] Last Admin: 09/17/18 17:42 Dose: 1 ml Sennosides (Senokot Tab) 17.2 mg PO HS [facility] Last Admin: 09/16/18 21:31 Dose: Not Given - Labs Labs: 09/17/18 05:20 09/17/18 05:20 - Constitutional Appears: Well - Head Exam Head Exam: ATRAUMATIC, NORMAL INSPECTION, NORMOCEPHALIC - Eye Exam Eye Exam: EOMI, Normal appearance Pupil Exam: NORMAL ACCOMODATION, PERRL - ENT Exam ENT Exam: Mucous Membranes Moist, Normal Exam - Neck Exam Neck Exam: Full ROM, Normal Inspection - Respiratory Exam Respiratory Exam: Clear to Ausculation Bilateral - Cardiovascular Exam Cardiovascular Exam: REGULAR RHYTHM - GI/Abdominal Exam GI & Abdominal Exam: Soft, Normal Bowel Sounds - Rectal Exam Rectal Exam: NORMAL INSPECTION - Exam External exam: NORMAL EXTERNAL EXAM - Extremities Exam Extremities Exam: Full ROM, Normal Capillary Refill, Normal Inspection - Back Exam Back Exam: NORMAL INSPECTION - Neurological Exam Neurological Exam: Alert, Awake Neuro motor strength exam: Left Upper Extremity: 3, Right Upper Extremity: 3, Left Lower Extremity: 3, Right Lower Extremity: 3 - Psychiatric Exam Psychiatric exam: Normal Affect, Normal Mood - Skin Skin Exam: Dry, Normal Color Assessment and Plan (1) Knee injury Status: Acute (2) Nasal contusion Status: Acute (3) Tetanus toxoid vaccination administered at current visit Status: Acute - Assessment and Plan (Free Text) Assessment: plan for physical, occupational therapy program for range of motion, strenghtening , transfers and gait training. Dc planning , covering for Dr Blanco
[2018-09-17] MEDS: Lidocaine 5% Patch TD PRN (23:03)
[2018-09-18] MEDS: Enoxaparin 40 mg Syringe SC SCH (08:08)
[2018-09-18] MEDS: Povidone Iodine Topical 10% Sol TOP SCH ×2 (08:08→17:03)
--- NOTE | 2018-09-18 13:46 | CP.PCM.PN ---
Subjective - Date & Time of Evaluation Date of Evaluation: 09/18/18 Time of Evaluation: 13:45 - Subjective Subjective: doing well no complaints pain controlled Lidoderm patch effective hd stable nad Objective - Vital Signs/Intake and Output Vital Signs (last 24 hours): Temp Pulse Resp BP Pulse Ox 98.1 F 96 H 18 149/73 99 09/18/18 08:16 09/18/18 08:16 09/18/18 08:16 09/18/18 08:16 09/18/18 08:16 - Medications Medications: Current Medications Acetaminophen (Tylenol 325mg Tab) 650 mg PO Q6 PRN PRN Reason: Pain, Mild (1-3) Last Admin: 09/17/18 21:10 Dose: 650 mg Alprazolam (Xanax) 0.5 mg PO TID PRN PRN Reason: Anxiety Last Admin: 09/18/18 13:22 Dose: 0.5 mg Bisacodyl (Dulcolax) 10 mg [place] DAILY PRN PRN Reason: Constipation Cyclobenzaprine HCl (Flexeril) 10 mg PO BID [facility] Last Admin: 09/18/18 08:09 Dose: 10 mg Docusate Sodium (Colace) 100 mg PO TID [facility] Last Admin: 09/18/18 13:13 Dose: 100 mg Enoxaparin Sodium (Lovenox) 40 mg SC DAILY [facility]; Protocol Last Admin: 09/18/18 08:08 Dose: 40 mg Famotidine (Pepcid) 20 mg PO BID [facility] Last Admin: 09/18/18 08:08 Dose: 20 mg Gabapentin (Neurontin) 400 mg PO Q8 [facility] Last Admin: 09/18/18 13:13 Dose: 400 mg Hydrochlorothiazide (Hydrodiuril) 25 mg PO DAILY [facility] Last Admin: 09/18/18 08:10 Dose: 25 mg Lidocaine (Lidoderm) 1 ea TD DAILY PRN PRN Reason: Pain Last Admin: 09/17/18 23:03 Dose: 1 ea Losartan Potassium (Cozaar) 100 mg PO DAILY [facility] Last Admin: 09/18/18 08:09 Dose: 100 mg Magnesium Hydroxide (Milk Of Magnesia) 30 ml PO DAILY PRN PRN Reason: Constipation Ondansetron HCl (Zofran Tab) 4 mg PO Q6 PRN PRN Reason: Nausea/Vomiting Povidone Iodine (Betadine 10% Topical Soln) 1 ml TOP BID [facility] Last Admin: 09/18/18 08:08 Dose: 1 ml Sennosides (Senokot Tab) 17.2 mg PO HS [facility] Last Admin: 09/17/18 21:07 Dose: 17.2 mg - Labs Labs: 09/17/18 05:20 09/17/18 05:20 Assessment and Plan - Assessment and Plan (Free Text) Plan: S/P SPINE SURGERY WITH FUSION - PT, pain control HTN-STABLE ANEMIA-IMPROVED HYPERLIPIDEMIA ANXIETY
--- NOTE | 2018-09-18 14:50 | CP.PCM.PN ---
Subjective - Date & Time of Evaluation Date of Evaluation: 09/18/18 Time of Evaluation: 09:00 - Subjective Subjective: patient with discomfort in the leg Objective - Vital Signs/Intake and Output Vital Signs (last 24 hours): Temp Pulse Resp BP Pulse Ox 98.1 F 96 H 18 149/73 99 09/18/18 08:16 09/18/18 08:16 09/18/18 08:16 09/18/18 08:16 09/18/18 08:16 - Medications Medications: Current Medications Acetaminophen (Tylenol 325mg Tab) 650 mg PO Q6 PRN PRN Reason: Pain, Mild (1-3) Last Admin: 09/17/18 21:10 Dose: 650 mg Alprazolam (Xanax) 0.5 mg PO TID PRN PRN Reason: Anxiety Last Admin: 09/18/18 13:22 Dose: 0.5 mg Bisacodyl (Dulcolax) 10 mg [place] DAILY PRN PRN Reason: Constipation Cyclobenzaprine HCl (Flexeril) 10 mg PO BID [facility] [place] Last Admin: 09/18/18 08:09 Dose: 10 mg Docusate Sodium (Colace) 100 mg PO TID [facility] [place] Last Admin: 09/18/18 13:13 Dose: 100 mg Enoxaparin Sodium (Lovenox) 40 mg SC DAILY [facility] [place]; Protocol Last Admin: 09/18/18 08:08 Dose: 40 mg Famotidine (Pepcid) 20 mg PO BID [facility] [place] Last Admin: 09/18/18 08:08 Dose: 20 mg Gabapentin (Neurontin) 400 mg PO Q8 [facility] [place] Last Admin: 09/18/18 13:13 Dose: 400 mg Hydrochlorothiazide (Hydrodiuril) 25 mg PO DAILY [facility] [place] Last Admin: 09/18/18 08:10 Dose: 25 mg Lidocaine (Lidoderm) 1 ea TD DAILY PRN PRN Reason: Pain Last Admin: 09/17/18 23:03 Dose: 1 ea Losartan Potassium (Cozaar) 100 mg PO DAILY [facility] [place] Last Admin: 09/18/18 08:09 Dose: 100 mg Magnesium Hydroxide (Milk Of Magnesia) 30 ml PO DAILY PRN PRN Reason: Constipation Ondansetron HCl (Zofran Tab) 4 mg PO Q6 PRN PRN Reason: Nausea/Vomiting Povidone Iodine (Betadine 10% Topical Soln) 1 ml TOP BID [facility] [place] Last Admin: 09/18/18 08:08 Dose: 1 ml Sennosides (Senokot Tab) 17.2 mg PO HS [facility] Last Admin: 09/17/18 21:07 Dose: 17.2 mg - Labs Labs: 09/17/18 05:20 09/17/18 05:20 - Head Exam Head Exam: ATRAUMATIC, NORMAL INSPECTION, NORMOCEPHALIC - Eye Exam Eye Exam: EOMI, Normal appearance, PERRL Pupil Exam: NORMAL ACCOMODATION - ENT Exam ENT Exam: Mucous Membranes Moist, Normal Exam - Neck Exam Neck Exam: Full ROM, Normal Inspection - Respiratory Exam Respiratory Exam: NORMAL BREATHING PATTERN - Cardiovascular Exam Cardiovascular Exam: REGULAR RHYTHM - GI/Abdominal Exam GI & Abdominal Exam: Soft, Normal Bowel Sounds - Rectal Exam Rectal Exam: NORMAL INSPECTION - Exam External exam: NORMAL EXTERNAL EXAM - Extremities Exam Extremities Exam: Full ROM, Normal Capillary Refill - Back Exam Back Exam: NORMAL INSPECTION - Neurological Exam Neurological Exam: Alert, Awake Neuro motor strength exam: Left Upper Extremity: 3, Right Upper Extremity: 3, Left Lower Extremity: 3, Right Lower Extremity: 3 - Psychiatric Exam Psychiatric exam: Normal Affect, Normal Mood - Skin Skin Exam: Dry, Intact Assessment and Plan (1) Knee injury Status: Acute (2) Nasal contusion Status: Acute (3) Tetanus toxoid vaccination administered at current visit Status: Acute - Assessment and Plan (Free Text) Assessment: plan fo rphysical, occupational, rec therapy Dc for 09/25
[2018-09-18] MEDS: Lidocaine 5% Patch TD PRN (20:18)
[2018-09-19] MEDS: Povidone Iodine Topical 10% Sol TOP SCH ×2 (08:52→16:50)
[2018-09-19] MEDS: Enoxaparin 40 mg Syringe SC SCH (08:54)
[2018-09-19] MEDS: Lidocaine 5% Patch TD PRN (08:56)
[2018-09-20 07:28] LABS: HEMOGLOBIN 12.3 g/dL (12.0-16.0); MEAN CELL VOLUME 91.7 fl (81.0-99.0); MEAN CORPUSCULAR HEMOGLOBIN 30.4 pg (27.0-31.0); MEAN CORPUSCULAR HGB CONC 33.1 g/dL (33.0-37.0); RBC 4.04 Mil/uL (3.80-5.20); RED CELL DISTRIBUTION WIDTH 12.9 % (11.5-14.5); WHITE BLOOD COUNT 8.2 K/uL (4.8-10.8)
[2018-09-20 07:41] LABS: BLOOD UREA NITROGEN 12 mg/dl (7-17); CALCIUM 9.7 mg/dL (8.4-10.2); GFR NON-AFRICAN AMERICAN > 60
[2018-09-20] MEDS: Enoxaparin 40 mg Syringe SC SCH (08:35)
[2018-09-20] MEDS: Povidone Iodine Topical 10% Sol TOP SCH ×2 (08:37→16:26)
[2018-09-20 11:05] LABS: ALB/GLOB RATIO 1.1 (1.0-2.1); ALBUMIN 4.2 g/dL (3.5-5.0); BILIRUBIN,DIRECT 0.2 mg/ml (0.0-0.4)
[2018-09-20] MEDS: Lidocaine 5% Patch TD PRN (23:49)
[2018-09-21] MEDS: Povidone Iodine Topical 10% Sol TOP SCH ×2 (08:08→17:01)
[2018-09-21] MEDS: Enoxaparin 40 mg Syringe SC SCH (08:10)
--- NOTE | 2018-09-21 12:23 | CP.PCM.PN ---
Subjective - Date & Time of Evaluation Date of Evaluation: 09/21/18 Time of Evaluation: 12:21 - Subjective Subjective: doing well no complaints hd stable nad Objective - Vital Signs/Intake and Output Vital Signs (last 24 hours): Temp Pulse Resp BP Pulse Ox 97.8 F 77 21 117/69 100 09/21/18 08:23 09/21/18 08:23 09/21/18 08:23 09/21/18 08:23 09/21/18 08:23 Intake and Output: Vitals Reviewed GEN: WDWN, alert, cooperative HEENT: NCAT, PERRL, EOMI HEART: RRR, +S1S2, NO MRG LUNG: CTAB, NO WRR ABD: soft, NT, ND, No HSM, No masses EXT: normal pedal pulses NEURO: awake, alert SKIN: warm, dry PSYCH: normal mood, normal affect - Medications Medications: Current Medications Acetaminophen (Tylenol 325mg Tab) 650 mg PO Q6 PRN PRN Reason: Pain, Mild (1-3) Last Admin: 09/21/18 01:37 Dose: 650 mg Alprazolam (Xanax) 0.5 mg PO TID PRN PRN Reason: Anxiety Last Admin: 09/21/18 08:07 Dose: 0.5 mg Bisacodyl (Dulcolax) 10 mg [place] DAILY PRN PRN Reason: Constipation Cyclobenzaprine HCl (Flexeril) 10 mg PO BID [facility] Last Admin: 09/21/18 08:10 Dose: 10 mg Docusate Sodium (Colace) 100 mg PO TID [facility] Last Admin: 09/21/18 08:09 Dose: 100 mg Enoxaparin Sodium (Lovenox) 40 mg SC DAILY [facility]; Protocol Last Admin: 09/21/18 08:10 Dose: 40 mg Famotidine (Pepcid) 20 mg PO BID [facility] Last Admin: 09/21/18 08:09 Dose: 20 mg Gabapentin (Neurontin) 400 mg PO Q8 [facility] Last Admin: 09/21/18 06:36 Dose: 400 mg Hydrochlorothiazide (Hydrodiuril) 25 mg PO DAILY [facility] Last Admin: 09/21/18 08:09 Dose: 25 mg Lidocaine (Lidoderm) 1 ea TD DAILY PRN PRN Reason: Pain Last Admin: 09/20/18 23:49 Dose: 1 ea Losartan Potassium (Cozaar) 100 mg PO DAILY [facility] Last Admin: 09/21/18 08:10 Dose: 100 mg Magnesium Hydroxide (Milk Of Magnesia) 30 ml PO DAILY PRN PRN Reason: Constipation Ondansetron HCl (Zofran Tab) 4 mg PO Q6 PRN PRN Reason: Nausea/Vomiting Povidone Iodine (Betadine 10% Topical Soln) 1 ml TOP BID [facility] Last Admin: 09/21/18 08:08 Dose: 1 ml Sennosides (Senokot Tab) 17.2 mg PO HS [facility] Last Admin: 09/20/18 22:08 Dose: Not Given - Labs Labs: 09/20/18 05:30 09/20/18 05:30 Assessment and Plan - Assessment and Plan (Free Text) Plan: S/P SPINE SURGERY WITH FUSION - PT, pain control HTN-STABLE ANEMIA-IMPROVED HYPERLIPIDEMIA ANXIETY
[2018-09-21] MEDS: Lidocaine 5% Patch TD PRN (21:40)
[2018-09-21] MEDS ORDERED: Lidocaine 5% Patch TD ONE (21:53)
[2018-09-22] MEDS: Enoxaparin 40 mg Syringe SC SCH (08:11)
[2018-09-22] MEDS: Povidone Iodine Topical 10% Sol TOP SCH ×2 (08:13→17:04)
--- NOTE | 2018-09-22 13:29 | PCM.PSYTMC ---
Acute Rehab Team Conference - - Vital Signs: Vital Signs (Last 8 Hours): Vital Signs 09/22/18 09/22/18 08:12 10:00 Temperature 98.1 F Pulse Rate 88 88 Respiratory 20 Rate Blood Pressure 128/58 L 125/58 L O2 Sat by Pulse 100 Oximetry Pain: 10 - Precautions: Precautions: Fall Prevention - Medications/Other Issues: Comment: (+) Anxiety , on Xanax TID PRN. - Consults: Comment: Dr. Saleh, Dr. Raines - Skin: Incision Site: Lower back Dressing Status: Clean, Dry, Intact Incision: No Drainage Noted Incision Line Treatment: Lowerback incision line with dermabond, [employer]. - Toileting: Toileting: Supervision - Bladder Management: Bladder Pattern: Retention Voiding Method: Indwelling Catheter Bladder Management: Dependent Other Intervention:: 0 - Transfers: Transfers: Minimal Assistance - ADL's: ADL's: Minimal Assistance - Pain Management: Other Intervention:: Tylenol PRN, Refuses to take Oxycodone - Patient/Family Teaching: Other Intervention:: Care post CVA and safety precautions - Goals/Time Frame: Comment: Per Multidisciplinary care plan and goals - Provider: Registered Nurse:: Anjali Pelayo Physical Therapy - Bed Mobility Bed Mobility: Modified Independent, Supervision Comment: log rolling method to adhere to spinal precautions - Transfers Wheelchair to Mat: Modified Independent, Supervision Sit to Stand: Modified Independent, Supervision Comment: with SPc with mod I. without device with S - Ambulation Distance (ft.): 600 Assistive Devices: N/A, Single point cane Orthoses: n/a Comment: level surfaces, indoors. -600 feet with SPC (RUE) with mod I. -300 feet without device with supervision x 5 reps. -emphasis on adequate base of support, upright visual gaze and without device education on reciprocal arm swing to improve balance & support - Stair Negotiation Stairs: Level of Assistance: Supervision Number of Stairs: 22 Handrails: Right Stairs: Assistive Devices: Left Handrail, Right Handrail Comment: 22 8 inch steps. -R rail on ascent, L rail on descent. -reciprocal pattern on ascent and combination of step to and reciprocal pattern on descent - Standing Balance Static Stand: Modified [place] with assistive device Comment: SPC - Pain Pain (assessed during therapy session): 0 Alleviating Techniques: Medication, Exercise Comment: -during therapy patient reports 0/10. -reports some B knee discomfort at night when trying to sleep; relieved with tylenol. -education regarding pain management and recovery process completed - Insight/Carryover Insight/Carryover: Fair - Patient/Family Education Comment: safety, therapy schedule, goals, spinal precautions, assistive device progression, log-rolling techniques, energy conservation, postural control, recovery progress, pain management techniques, transfers, stair training - Assessment/Plan Assessment: Ms. Buchanan continues to make excellent progress in therapies. Pt progressed patient for mobility with use of a SPC and removed walker from patient's room; notified nursing & educated patient on safe mobility. In therapy, PT working on gait/mobility without a device. Patient continues to have some anxiety regarding discharge and any slight return of sensations that she experienced prior to surgery. Education completed with patient regarding recovery process and expectations. Educated patient that it is normal to have some intermittent symptoms at times and that the recovery process takes long. Pt reports some discomfort of knees at night but denies discomfort during the day or during therapies. PT recommends continued skilled therapy with emphasis son safety, mobility and return to independent functioning. PT recommends home discharge with intermittent supervision, SPC for community and outpatient PT services following completion of full length of stay in acute rehab. - Goals Tiimeframe: 5 days Goals: negotiate 2 flights of steps with single rail and mod I. 500 feet without device with I. 1000 feet with SPC with mod I (community mobility). I without device. mod I with SPC. rolling with I (log-rolling technique). supine to/from sit with mod I (log-rolling technique) - Provider Physical Therapist:: Becky Schmidt License Number:: [id number] Occupational Therapy - Arousal/Attention/Orientation Level of Consciousness: Awake, Alert - ADL/IADL Self Feeding: Modified Independent Grooming: Modified Independent Bathing-Upper Ext: Set-up Help Bathing-Lower Ext: Supervision, Verbal Cues, Set-up Help Dressing-Upper Ext: Modified Independent Dressing-Lower Ext: Modified Independent, Supervision - Sitting Balance Static Sitting: Independent without upper extremity support Dynamic Sitting: Reaches across midline, Reaches out of base of support, Reaches within base of support, Requires supervision - Transfers Wheelchair to Bed Transfers: Modified Independent, Supervision Toilet Transfers: Modified Independent, Supervision Comment: shower transfers: supervision - Wheelchair Management Level of Assistance: Not Applicable - Upper Extremity Status Right Upper Extremity Comment: AROM is WNls Left Upper Extremity Comment: AROm WNLs - Pain Pain (assessed during therapy session): 2 Comment: back incision site - Insight/Carryover Insight/Carryover: Fair - Patient/Family Education Comment: -educated on rehab/OT goals, plan of care, acute rehab program. - educated on uses/applications of socakide, dressing stick, fisher pound net or trap & sockaide. -educated on spinal precautions as related to self care, functional mobility/transfers. -educated on uses/applications of commode, shower chair with back. -pt needs additional training to improev carryover - Assessment/Plan Assessment: Pt is a 68 year old female with dx: lumbar stenosis & lithesis, s/p L4-L5 decompression. *Precautions: falls, spinal precautions, cardiac. Pt l imited by LLE, Low back pain/incision site, impaired endurance/overall strength, impaired standing balance/tolerance, impaired knowledge of adaptive/compensatory strategies(use of dressing aids)--which impact on overall function in self care, transfers/mobility and Iadls. Review spinal precautions with pt; pt verbalizes understanding. Pt wll continue skilled OT to maxmize function in self care, t ransfers/mobility and Iadls adhering to spinal precautions, using adaptive/compensatory strategies/devices prn. *Goal: Mod I for adls, transfers/mobility, Iadls, homemaking skills using assistive devices & adhering to spinal precautions. - Goals Timeframe: 3 days - Provider Occupational Therapist:: Hannah Chakraborty License Number: [id number] Recreational Therapy - Participation Participation: Monitors His/Her Own Leisure Time - Attendance Attendance: Daily - Activities Leisure Activities: Socializing - Socialization Level of Socialization: Initiates/interacts freely with care givers and peer - Diversional Time Diversional Time: socializing with guests, watching television - Assessment Assessment/Plan: Pt receives daily room visits for social support and encouragement to participate in sessions. Pt often seen socializing with her visitors or watching televisin during her free time. Pt encouraged to play the keyboard or the piano in the lobby; however, pt reported that she prefers to play the piano and have her sheet music to play. Pt's mood is stable-positive throughout stay and receives leisure education to decrease anxiety level. Problems Currently Limiting Participation: anxiety, pain, discomfort, decrease leisure awareness level Goals and Time Frame: Pt will be encouraged to participate in 1:1 and group recreation therapy sessions 3-5x week to improve leisure awareness level, decrease anxiety level, and improve mood state. Nutrition - Current Diet Current Diet/Supplement/Feedings: 2 gram Na diet - Appetite Percent Meal Consumed: 75-100% - Assessment/Goals/Time Frame Assessments/Goals/Time Frame: Pt at moderate nutritional risk. goals: 1. Pt to consume 75-100% of meals(met, continue). Follow-up due on 09/28/2018 - Provider Provider: Chikis Gordon Case Management - Psychosocial Assessment Support Systems: Patient's sister is supportive and involved in care. Shannon Regalado (sister)- [phone]. Ellyn Bowling (friend)- [phone], Psychological Interventions/Needs: Patient is AAOx3 and able to verbalize needs. Patient is anxious, yet motivated for therapy Discharge Concerns: Patient with 20 steps to negotiate at home. Patient/Family Meeting: CM met with patient and rehab team Intervention/Goal/Outcome: 1. Goal: Mod I overall. 2. Plan: Outpatient PT. 3. continued emotional support. 4. DME needs? 5. f/u appts. 6. tentative discharge date: 09/25/2018 - Discharge Plan Discharge Plan: Outpatient rehab - Provider Provider: Juan Pablo Love License Number: [id number] Rehabilitation Plan - Treatment Plan Treatment Plan: Physical Therapy, Occupational Therapy, Dietary, Pain Management, Patient/Family Education - Discharge Plan Estimated Date of Discharge: 09/25/18 Discharge to: Home
--- NOTE | 2018-09-22 16:29 | CP.PCM.PN ---
Subjective - Date & Time of Evaluation Date of Evaluation: 09/22/18 Time of Evaluation: 16:27 - Subjective Subjective: Patient seen in the room doing ok and the Neurontin has helped nicely with the pain She wanted to taper off of it but I told her that we just increased it and she should wait about 5-6 weeks more before attempting to taper off set for 09/25/18 d/c home doing very well in therapies Objective - Vital Signs/Intake and Output Vital Signs (last 24 hours): Temp Pulse Resp BP Pulse Ox 98.1 F 88 20 125/58 L 100 09/22/18 10:40 09/22/18 10:40 09/22/18 10:40 09/22/18 10:40 09/22/18 10:00 - Medications Medications: Current Medications Acetaminophen (Tylenol 325mg Tab) 650 mg PO Q6 PRN PRN Reason: Pain, Mild (1-3) Last Admin: 09/21/18 01:37 Dose: 650 mg Alprazolam (Xanax) 0.5 mg PO TID PRN PRN Reason: Anxiety Last Admin: 09/22/18 13:00 Dose: 0.5 mg Bisacodyl (Dulcolax) 10 mg [place] DAILY PRN PRN Reason: Constipation Cyclobenzaprine HCl (Flexeril) 10 mg PO BID [facility] Last Admin: 09/22/18 08:12 Dose: 10 mg Docusate Sodium (Colace) 100 mg PO TID [facility] Last Admin: 09/22/18 13:01 Dose: 100 mg Enoxaparin Sodium (Lovenox) 40 mg SC DAILY [facility]; Protocol Last Admin: 09/22/18 08:11 Dose: 40 mg Famotidine (Pepcid) 20 mg PO BID [facility] Last Admin: 09/22/18 08:12 Dose: 20 mg Gabapentin (Neurontin) 400 mg PO Q8 [facility] Last Admin: 09/22/18 13:01 Dose: 400 mg Hydrochlorothiazide (Hydrodiuril) 25 mg PO DAILY [facility] Last Admin: 09/22/18 08:11 Dose: 25 mg Lidocaine (Lidoderm) 1 ea TD DAILY PRN PRN Reason: Pain Last Admin: 09/21/18 21:40 Dose: 1 ea Losartan Potassium (Cozaar) 100 mg PO DAILY [facility] Last Admin: 09/22/18 08:12 Dose: 100 mg Magnesium Hydroxide (Milk Of Magnesia) 30 ml PO DAILY PRN PRN Reason: Constipation Ondansetron HCl (Zofran Tab) 4 mg PO Q6 PRN PRN Reason: Nausea/Vomiting Povidone Iodine (Betadine 10% Topical Soln) 1 ml TOP BID [facility] Last Admin: 09/22/18 08:13 Dose: 1 ml Sennosides (Senokot Tab) 17.2 mg PO HS [facility] Last Admin: 09/21/18 21:34 Dose: 17.2 mg - Labs Labs: 09/20/18 05:30 09/20/18 05:30
[2018-09-22] MEDS: Lidocaine 5% Patch TD PRN (21:45)
[2018-09-23 06:56] LABS: HEMOGLOBIN 12.2 g/dL (12.0-16.0); MEAN CELL VOLUME 91.8 fl (81.0-99.0); MEAN CORPUSCULAR HEMOGLOBIN 30.3 pg (27.0-31.0); RBC 4.03 Mil/uL (3.80-5.20); WHITE BLOOD COUNT 7.1 K/uL (4.8-10.8)
[2018-09-23 07:07] LABS: BLOOD UREA NITROGEN 15 mg/dl (7-17); CALCIUM 10.7 mg/dL (8.4-10.2); GFR NON-AFRICAN AMERICAN > 60
[2018-09-23] MEDS: Enoxaparin 40 mg Syringe SC SCH (08:38)
[2018-09-23] MEDS: Povidone Iodine Topical 10% Sol TOP SCH ×2 (08:40→17:43)
--- NOTE | 2018-09-23 14:18 | CP.PCM.PN ---
Subjective - Date & Time of Evaluation Date of Evaluation: 09/23/18 Time of Evaluation: 11:20 - Subjective Subjective: Patient seen and examined. Admitted doing better and without complaint. Objective - Vital Signs/Intake and Output Vital Signs (last 24 hours): Temp Pulse Resp BP Pulse Ox 98.1 F 84 22 129/65 99 09/23/18 09:23 09/23/18 09:23 09/23/18 09:23 09/23/18 09:23 09/23/18 09:23 - Medications Medications: Current Medications Acetaminophen (Tylenol 325mg Tab) 650 mg PO Q6 PRN PRN Reason: Pain, Mild (1-3) Last Admin: 09/22/18 22:54 Dose: 650 mg Alprazolam (Xanax) 0.5 mg PO TID PRN PRN Reason: Anxiety Last Admin: 09/23/18 12:48 Dose: 0.5 mg Bisacodyl (Dulcolax) 10 mg [place] DAILY PRN PRN Reason: Constipation Cyclobenzaprine HCl (Flexeril) 10 mg PO BID [facility] Last Admin: 09/23/18 08:37 Dose: 10 mg Docusate Sodium (Colace) 100 mg PO TID [facility] Last Admin: 09/23/18 12:49 Dose: 100 mg Enoxaparin Sodium (Lovenox) 40 mg SC DAILY [facility]; Protocol Last Admin: 09/23/18 08:38 Dose: 40 mg Famotidine (Pepcid) 20 mg PO BID [facility] Last Admin: 09/23/18 08:37 Dose: 20 mg Gabapentin (Neurontin) 400 mg PO Q8 [facility] Last Admin: 09/23/18 13:09 Dose: 400 mg Hydrochlorothiazide (Hydrodiuril) 25 mg PO DAILY [facility] Last Admin: 09/23/18 08:37 Dose: 25 mg Lidocaine (Lidoderm) 1 ea TD DAILY PRN PRN Reason: Pain Last Admin: 09/22/18 21:45 Dose: 1 ea Losartan Potassium (Cozaar) 100 mg PO DAILY [facility] Last Admin: 09/23/18 08:39 Dose: 100 mg Magnesium Hydroxide (Milk Of Magnesia) 30 ml PO DAILY PRN PRN Reason: Constipation Ondansetron HCl (Zofran Tab) 4 mg PO Q6 PRN PRN Reason: Nausea/Vomiting Povidone Iodine (Betadine 10% Topical Soln) 1 ml TOP BID [facility] Last Admin: 09/23/18 08:40 Dose: 1 ml Sennosides (Senokot Tab) 17.2 mg PO HS [facility] Last Admin: 09/22/18 21:43 Dose: 17.2 mg - Labs Labs: 09/23/18 05:40 09/23/18 05:40 - Constitutional Appears: No Acute Distress - Head Exam Head Exam: ATRAUMATIC - Eye Exam Eye Exam: absent: Scleral icterus - ENT Exam ENT Exam: Mucous Membranes Moist - Neck Exam Neck Exam: absent: Meningismus - Respiratory Exam Respiratory Exam: absent: Rales, Rhonchi, Wheezes, Respiratory Distress - Cardiovascular Exam Cardiovascular Exam: REGULAR RHYTHM, +S1, +S2 - GI/Abdominal Exam GI & Abdominal Exam: Soft. absent: Tenderness - Rectal Exam Rectal Exam: Deferred - Neurological Exam Neurological Exam: Alert, Oriented x3 - Psychiatric Exam Psychiatric exam: Normal Affect - Skin Skin Exam: Dry, Intact Assessment and Plan - Assessment and Plan (Free Text) Assessment: 68 yo female admitted for rehab and pain management post lumbar surgery (L4/5 decompression/fusion) 1. S/P Lumbar Decompression/Fusion pain controlled continue PT 2. HTN BP stable continue Losartan and HCTZ 3. DVT prophylaxis on Lovenox
[2018-09-23 20:34] VITALS: RESP 20
[2018-09-23] MEDS: Lidocaine 5% Patch TD PRN (22:23)
[2018-09-24] MEDS: Enoxaparin 40 mg Syringe SC SCH (08:13)
[2018-09-24] MEDS: Povidone Iodine Topical 10% Sol TOP SCH ×2 (08:15→16:54)
[2018-09-25 07:37] VITALS: PULSE 79; TEMP 98.2; O2SAT 95
[2018-09-25] MEDS: Povidone Iodine Topical 10% Sol TOP SCH (08:15)
[2018-09-25 08:19] VITALS: BP 121/60
[2018-09-25] MEDS: Enoxaparin 40 mg Syringe SC SCH ×2 (08:19→08:24)
--- NOTE | 2018-09-25 12:39 | CP.PCM.DIS ---
Provider - Provider Date of Admission: 09/13/18 13:48 Attending physician: Nahid Simpson MD Primary care physician: Dr. Simpson Consults: Physiatry urology consult Time Spent in preparation of Discharge (in minutes): 15 Hospital Course - Lab Results Lab Results: Most Recent Lab Values WBC 7.1 K/uL (4.8-10.8) 09/23/18 05:40 RBC 4.03 Mil/uL (3.80-5.20) 09/23/18 05:40 Hgb 12.2 g/dL (12.0-16.0) 09/23/18 05:40 Hct 37.0 % (34.0-47.0) 09/23/18 05:40 MCV 91.8 fl (81.0-99.0) 09/23/18 05:40 MCH 30.3 pg (27.0-31.0) 09/23/18 05:40 MCHC 33.0 g/dL (33.0-37.0) 09/23/18 05:40 RDW 13.0 % (11.5-14.5) 09/23/18 05:40 Plt Count 332 K/uL (130-400) 09/23/18 05:40 MPV 8.1 fl (7.2-11.7) 09/14/18 05:25 Neut % (Auto) 71.2 % (50.0-75.0) 09/14/18 05:25 Lymph % (Auto) 17.5 % (20.0-40.0) L 09/14/18 05:25 [place] % (Auto) 6.5 % (0.0-10.0) 09/14/18 05:25 Eos % (Auto) 3.9 % (0.0-4.0) 09/14/18 05:25 Baso % (Auto) 0.9 % (0.0-2.0) 09/14/18 05:25 Neut # (Auto) 7.0 K/uL (1.8-7.0) 09/14/18 05:25 Lymph # (Auto) 1.7 K/uL (1.0-4.3) 09/14/18 05:25 [place] # (Auto) 0.6 K/uL (0.0-0.8) 09/14/18 05:25 Eos # (Auto) 0.4 K/uL (0.0-0.7) 09/14/18 05:25 Baso # (Auto) 0.1 K/uL (0.0-0.2) 09/14/18 05:25 Sodium 139 mmol/l (132-148) 09/23/18 05:40 Potassium 4.5 MMOL/L (3.6-5.0) 09/23/18 05:40 Chloride 99 mmol/L (98-107) 09/23/18 05:40 Carbon Dioxide 30 mmol/L (22-30) 09/23/18 05:40 Anion Gap 15 (10-20) 09/23/18 05:40 BUN 15 mg/dl (7-17) 09/23/18 05:40 Creatinine 0.9 mg/dl (0.7-1.2) 09/23/18 05:40 Est GFR ( Amer) > 60 09/23/18 05:40 Est GFR (Non-Af Amer) > 60 09/23/18 05:40 Random Glucose 109 mg/dL (65-105) H 09/23/18 05:40 Calcium 10.7 mg/dL (8.4-10.2) H 09/23/18 05:40 Total Bilirubin 0.4 mg/dl (0.2-1.3) 09/20/18 10:45 Direct Bilirubin 0.2 mg/ml (0.0-0.4) 09/20/18 10:45 AST 50 U/L (14-36) H 09/20/18 10:45 ALT 43 U/L (9-52) 09/20/18 10:45 Alkaline Phosphatase 94 U/L (38-126) 09/20/18 10:45 Total Protein 7.9 G/DL (6.3-8.2) 09/20/18 10:45 Albumin 4.2 g/dL (3.5-5.0) 09/20/18 10:45 Globulin 3.7 gm/dL (2.2-3.9) 09/20/18 10:45 Albumin/Globulin Ratio 1.1 (1.0-2.1) 09/20/18 10:45 Triglycerides 127 mg/DL (0-149) 09/17/18 05:20 Cholesterol 214 mg/dL (0-199) H 09/17/18 05:20 LDL Cholesterol Direct 141 mg/dL (0-129) H 09/17/18 05:20 HDL Cholesterol 42 MG/DL (30-70) 09/17/18 05:20 - Hospital Course Hospital Course: 68 y/o female with PMH HTN , anxiety , chronic lower back pain underwent lumbar, L4-L5 decompression and fusion surgery and transferred to acute rehab for PT . She participated well with PT and today being discharged home to continue PT as outpatient . Pain is very well controlled Bp is controlled she will follow up with her PMD Dr. Simpson as outpatient 1. S/P Lumbar Decompression/Fusion L4-L5 2. HTN 3. Anxiety Discharge Exam - Head Exam Head Exam: ATRAUMATIC, NORMAL INSPECTION, NORMOCEPHALIC - Eye Exam Eye Exam: EOMI, Normal appearance, PERRL Pupil Exam: NORMAL ACCOMODATION - ENT Exam ENT Exam: Mucous Membranes Moist, Normal Exam - Neck Exam Neck exam: Full Rom, Normal Inspection - Respiratory Exam Respiratory Exam: Clear to PA & Lateral, NORMAL BREATHING PATTERN. absent: Rales, Rhonchi, Wheezes - Cardiovascular Exam Cardiovascular Exam: REGULAR RHYTHM, RRR, +S1, +S2. absent: JVD - GI/Abdominal Exam GI & Abdominal Exam: Normal Bowel Sounds, Soft. absent: Distended, Guarding, Rebound, Tenderness - Rectal Exam Rectal Exam: Deferred - Extremities Exam Extremities exam: normal capillary refill, normal inspection, pedal pulses present - Back Exam Back exam: NORMAL INSPECTION - Neurological Exam Neurological exam: Alert, CN II-XII Intact, Oriented x3 - Psychiatric Exam Psychiatric exam: Normal Affect, Normal Mood - Skin Skin Exam: Dry, Intact, Normal Color, Warm Discharge Plan - Follow Up Plan Condition: GOOD Disposition: HOME/ ROUTINE Patient education suggested?: Yes Instructions: Spinal Stenosis, Low Back Pain (DC) Referrals: Nahid Simpson MD [Staff Provider] -
== END 2018-09-25 13:00 | disposition home or self-care (01) | DRG 561 ==
PROVIDERS: ADMIT Internal Medicine Pulmonary Disease; ATTEND Internal Medicine Pulmonary Disease
PROC: F07Z9FZ Gait Training/Functional Ambulation Treatment using Assistive, Adaptive, Supportive or Protective Equipment (ICD-10-PCS; principal; 2018-09-13)
PROC: F08Z4FZ Home Management Treatment using Assistive, Adaptive, Supportive or Protective Equipment (ICD-10-PCS; 2018-09-13)
PROC: F07L6FZ Therapeutic Exercise Treatment of Musculoskeletal System - Lower Back / Lower Extremity using Assistive, Adaptive, Supportive or Protective Equipment (ICD-10-PCS; 2018-09-14)
DX: Z47.89 Encounter for other orthopedic aftercare (principal); M48.061 Spinal stenosis, lumbar region without neurogenic claudication; G89.29 Other chronic pain; R33.8 Other retention of urine; K56.41 Fecal impaction; D64.9 Anemia, unspecified; I10 Essential (primary) hypertension; E78.5 Hyperlipidemia, unspecified; K21.9 Gastro-esophageal reflux disease without esophagitis; F41.9 Anxiety disorder, unspecified; K57.90 Diverticulosis of intestine, part unspecified, without perforation or abscess without bleeding; Z98.1 Arthrodesis status; Z88.6 Allergy status to analgesic agent

== ENCOUNTER 2018-12-22 07:10 | Emergency (ER) | payer MEDICARE ==
[2018-12-22 07:21] VITALS: RESP 16; BMI 29.8
--- NOTE | 2018-12-22 07:46 | ED PDOC ---
History of Present Illness History of Present Illness: This is 68 y/o F with PMH of HTN, Anxiety and chronic lower back pain s/p fusion surgery comes to the ER c/o worsening cough, congestion and subjective fever since yesterday. Patient reports she had cold 2 weeks ago, treated with abx and symptoms improved till yesterday. Patient reports she had cystitis after her back surgery and was seen by urology and treated with Abx. Patient reports dysuria since last few days, denies any discharge, abdominal pain or diarrhea. Patient reports she has mild back discomfort of her lower back b/c of her coughing and requesting she wants to see her back in xray. Patient reports sinus pain since last few weeks. PMH: As per HPI PSH: Lower back fusion surgery Allg: Oxycodone FH: + breast cancer, prostate cancer SH: Social alcohol use, denies smoking and illicit drug use ROS: Denies any cheat pain, SOB, dizziness, blurred vision, bowel or urine incontinent, weakness/numbness/tinglinh in b/l LEs <Chitra Soriano - Last Filed: 12/22/18 09:36> HPI: Influenza <Radha Flaherty A - Last Filed: 12/22/18 09:25> <Chitra Soriano - Last Filed: 12/22/18 09:36> Time Seen by Provider: 12/22/18 07:25 Chief Complaint: Shortness Of Breath Past Medical History Vital Signs: Last Vital Signs Temp 98.5 F 12/22/18 08:47 Pulse 97 H 12/22/18 08:47 Resp 16 12/22/18 08:47 BP 136/63 12/22/18 08:47 Pulse Ox 96 12/22/18 08:58 <Radha Flaherty A - Last Filed: 12/22/18 09:25> Vital Signs: Last Vital Signs Temp 99.2 F 12/22/18 07:18 Pulse 107 H 12/22/18 07:18 Resp 16 12/22/18 07:18 BP 164/82 H 12/22/18 07:18 Pulse Ox 96 12/22/18 07:18 - Medical History PMH: Anxiety, Diverticulitis, HTN Denies: HIV - Family History Family History: States: Unknown Family Hx <Deniz Sorianon - Last Filed: 12/22/18 09:36> - Home Medications Home Medications: Ambulatory Orders Medication Instructions Recorded Acetaminophen [Tylenol 325mg tab] 325 mg PO Q6 #30 tab 08/03/16 Alprazolam [Xanax] 0.5 mg PO Q8 PRN 09/13/18 Docusate [Colace] 100 mg PO TID 09/13/18 Famotidine [Acid Controller] 20 mg PO BID 09/13/18 Gabapentin [Neurontin] 300 mg PO Q12 09/13/18 Losartan [Cozaar] 100 mg PO DAILY 09/13/18 Sennosides [Senna] 10 10 PO BID 09/13/18 hydroCHLOROthiazide [Hydrodiuril] 25 mg PO DAILY 09/13/18 Cyclobenzaprine [Cyclobenzaprine 10 mg PO Q8 PRN #60 tab 09/27/18 HCl] Cyclobenzaprine [Cyclobenzaprine 10 mg PO Q8 PRN #60 tab 11/10/18 HCl] - Allergies Allergies/Adverse Reactions: Allergies Allergy/AdvReac Type Severity Reaction Status Date / Time oxycodone [From OxyContin] AdvReac Intermediate VISUAL Verified 09/14/18 08:35 HALLUCINATION AND PARANOIA Review of Systems Constitutional: Positive for: Fever, Chills Eyes: Negative for: Pain ENT: Negative for: Ear Pain Cardiovascular: Negative for: Chest Pain, Palpitations Respiratory: Positive for: Cough. Negative for: Shortness of Breath, Hemoptysis Gastrointestinal: Negative for: Nausea, Vomiting, Abdominal Pain Genitourinary Female: Positive for: Dysuria. Negative for: Frequency, Hematuria Musculoskeletal: Positive for: Back Pain (mild ). Negative for: Neck Pain, Shoulder Pain Skin: Negative for: Rash Neurological: Negative for: Weakness, Numbness Psych: Positive for: Anxiety <Deniz Soriaonjazmin - Last Filed: 12/22/18 09:36> Physical Exam - Physical Exam Appears: Positive for: No Acute Distress Head Exam: Positive for: NORMAL INSPECTION Skin: Positive for: Normal Color Eye Exam: Positive for: Normal appearance, EOMI, PERRL ENT: Positive for: Sinus Pain/Drainage, Nasal Congestion, Pharyngeal Erythema (mild ). Negative for: Tonsillar Exudate, Tonsillar Swelling Neck: Positive for: Normal, Painless ROM Cardiovascular/Chest: Positive for: Regular Rate, Rhythm. Negative for: JVD Respiratory: Positive for: Normal Breath Sounds. Negative for: Decreased Breath Sounds, Accessory Muscle Use, Crackles, Wheezing, Respiratory Distress Gastrointestinal/Abdominal: Positive for: Normal Exam, Bowel Sounds, Soft. Negative for: Tenderness Back: Positive for: Other (S/p back surgery/Fusion, scar was seen. stright leg test negative, no back tenderness, no erythema/discharge ). Negative for: L CVA Tenderness, R CVA Tenderness, Vertebral Tenderness, Muscle Spasm Extremity: Positive for: Normal ROM. Negative for: Tenderness, Calf Tenderness, Swelling Neurologic/Psych: Positive for: Alert, Oriented. Negative for: Motor/Sensory Deficits <Chitra Soriano - Last Filed: 12/22/18 09:36> Medical Decision Making Medical Decision Making: UTI Post-nasal drip <Chitra Soriano - Last Filed: 12/22/18 09:36> - Laboratory Results Lab Results: Urine Color Manuela (YELLOW) 12/22/18 07:52 Urine Clarity Clear (Clear) 12/22/18 07:52 Urine pH 6.0 (5.0-8.0) 12/22/18 07:52 Ur Specific [place] 1.018 (1.003-1.030) 12/22/18 07:52 Urine Protein Negative mg/dL (NEGATIVE) 12/22/18 07:52 Urine Glucose (UA) Neg mg/dL (NEGATIVE) 12/22/18 07:52 Urine Ketones Negative mg/dL (NEGATIVE) 12/22/18 07:52 Urine Blood Negative (NEGATIVE) 12/22/18 07:52 Urine Nitrate Positive (NEGATIVE) H 12/22/18 07:52 Urine Bilirubin Negative (NEGATIVE) 12/22/18 07:52 Urine Urobilinogen 2.0 mg/dL (0.2-1.0) H 12/22/18 07:52 Ur Leukocyte Esterase Neg [place]/uL (Negative) 12/22/18 07:52 Urine RBC (Auto) 1 /hpf (0-3) 12/22/18 07:52 Urine Microscopic WBC 1 /hpf (0-5) 12/22/18 07:52 Ur Squamous Epith Cells 1 /hpf (0-5) 12/22/18 07:52 <Radha Flaherty A - Last Filed: 12/22/18 09:25> - ECG O2 Sat by Pulse Oximetry: 96 - Progress ED Course And Treament: 68 y/o F with PMH of HTN, Anxiety and chronic lower back pain s/p fusion surgery comes to the ER c/o worsening cough, congestion and subjective fever since yesterday. C/o dysuria. - UA - Influenza A/B Case discussed with Dr Flaherty - Spoke with Dr. Simpson, PMD, f/u in office after discharge UA: + Nitrate F/u Urine culture Re-evaluation Time: 08:58 Condition: Re-examined <Chitra Soriano - Last Filed: 12/22/18 09:36> Disposition - Patient ED Disposition Is Patient to be Admitted: No Discussed With Dr.: Nahid Simpson Doctor Will See Patient In The: Office Counseled Patient/Family Regarding: Studies Performed, Diagnosis, Need For Followup - Disposition Disposition: Routine/Home Disposition Time: 09:25 <Radha Flaherty - Last Filed: 12/22/18 09:25> - Patient ED Disposition Is Patient to be Admitted: No Doctor Will See Patient In The: Office - Disposition Disposition: Routine/Home <Chitra Soriano - Last Filed: 12/22/18 09:36> - Clinical Impression Clinical Impression: UTI (urinary tract infection), Cystitis - Disposition Referrals: Nahid Simpson MD [Family Provider] - Condition: GOOD Additional Instructions: Your Rx for macrobid called in to [facility]. RADHA NELSON, thank you for letting us take care of you today. Your provider was Radha Flaherty MD and you were treated for CONGESTION,FEVER. The emergency medical care you received today was directed at your acute symptoms. If you were prescribed any medication, please fill it and take as directed. It may take several days for your symptoms to resolve. Return to the Emergency Department if your symptoms worsen, do not improve, or if you have any other problems. Please contact your doctor or call one of the physicians/clinics you have been referred to that are listed on the Patient Visit Information form that is included in your discharge packet. Bring any paperwork you were given at discharge with you along with any medications you are taking to your follow up visit. Our treatment cannot replace ongoing medical care by a primary care provider outside of the emergency department. Thank you for allowing the [facility] team to be part of your care today. If you had an X-Ray or CT scan: A Radiologist will review the ED reading if any change in treatment is needed we will contact you. If you had a blood, urine, or wound culture: It will take several days for the results, if any change in treatment is needed we will contact you. If you had an STI test: It will take 48 hours for the results. Please call after 1 week if you have not heard back. Instructions: Acute Cystitis (DC) Print Language: BRAZILIAN
[2018-12-22 08:04] LABS: SQUAMOUS EPITHIAL 1 /hpf (0-5); URINE BILIRUBIN NEGATIVE (NEGATIVE); URINE BLOOD NEGATIVE (NEGATIVE); URINE CLARITY CLEAR (Clear); URINE COLOR AMBER (YELLOW); URINE GLUCOSE (UA) NEG (NEGATIVE); URINE LEUKOCYTE ESTERASE NEG Leu/uL (Negative); URINE PROTEIN NEGATIVE (NEGATIVE)
[2018-12-22 08:47] VITALS: BP 136/63; PULSE 97; TEMP 98.5
[2018-12-22 08:48] VITALS: O2SAT 96
== END 2018-12-22 09:33 | disposition home or self-care (01) ==
LOC: H.ER 07:10
DX: N39.0 Urinary tract infection, site not specified (principal); N30.90 Cystitis, unspecified without hematuria; Z88.5 Allergy status to narcotic agent; F41.9 Anxiety disorder, unspecified